=== PATIENT | male | born 1985 | race Two or more races ===

== ENCOUNTER 2020-11-11 11:34 | Emergency (ER) | payer OTHER ==
[~2020-11-11] VITALS: Ht 182.9 cm; Wt 86.2 kg
[2020-11-11 11:36] VITALS: BP 145/84
--- NOTE | 2020-11-11 11:42 | NUR ---
SEEN AND EXAMINED BY .
--- NOTE | 2020-11-11 11:46 | NUR ---
Patient discharged in custody in stable condition. Written and verbal after care instructions given. Patient verbalizes understanding of instruction.
== END 2020-11-11 11:47 ==
LOC: ER 11:39
DX: S00.83XA Contusion of other part of head, initial encounter (principal); F19.10 Other psychoactive substance abuse, uncomplicated; F90.9 Attention-deficit hyperactivity disorder, unspecified type; Z60.2 Problems related to living alone; X58.XXXA Exposure to other specified factors, initial encounter; Y93.89 Activity, other specified; Y92.89 Other specified places as the place of occurrence of the external cause; Y99.8 Other external cause status